=== PATIENT | female | born 1985 | race Caucasian/White ===

== ENCOUNTER 2017-04-26 14:02 | Inpatient (IN) | payer OTHER ==
[~2017-04-26] VITALS: Ht 157.5 cm; Wt 2.3 kg
[2017-05-06] MEDS ORDERED: KETO10TA2 PO (09:38)
[2017-05-06] MEDS ORDERED: OSEL75CA PO (09:38)
== END 2017-05-06 17:52 | DRG 765 ==
LOC: LDR 05-03 17:14 → SURG-SUITE 05-03 17:14 → O/R 05-03 19:58 → SURG-SUITE 05-03 20:06 → OB/GYN 05-13 14:00
PROVIDERS: Obstetrics & Gynecology
PROC: 4A033R1 Measurement of Arterial Saturation, Peripheral, Percutaneous Approach (ICD-10-PCS; 2017-05-03)
PROC: 4A1HXCZ Monitoring of Products of Conception, Cardiac Rate, External Approach (ICD-10-PCS; 2017-05-03)
PROC: 10D00Z1 Extraction of Products of Conception, Low, Open Approach (ICD-10-PCS; principal; 2017-05-03 18:00)
DX: O76 Abnormality in fetal heart rate and rhythm complicating labor and delivery (principal); O75.3 Other infection during labor; O69.3XX0 Labor and delivery complicated by short cord, not applicable or unspecified; Z3A.38 38 weeks gestation of pregnancy; Z37.0 Single live birth